=== PATIENT | male | born 1975 | race Caucasian/White ===

== ENCOUNTER 2021-06-19 16:14 | Inpatient (IN) | payer OTHER ==
[~2021-06-19] VITALS: Ht 180.3 cm; Wt 111.1 kg
[2021-06-19 17:43] LABS: HEMOGLOBIN 14.1 gm/dl (14.0-17.5); RED BLOOD COUNT 4.86 M/UL (4.20-5.50); WHITE BLOOD COUNT 5.6 K/UL (4.5-11.0)
[2021-06-19 18:04] LABS: BUN/CREATININE RATIO 20 (0-10)
[2021-06-20 03:55] LABS: HEMOGLOBIN 13.9 gm/dl (14.0-17.5); RED BLOOD COUNT 4.79 M/UL (4.20-5.50); WHITE BLOOD COUNT 4.7 K/UL (4.5-11.0)
[2021-06-20 04:57] LABS: BUN/CREATININE RATIO 22 (0-10)
[2021-06-20] MEDS ORDERED: LORATADINE10 MG PO (10:55)
[2021-06-20] MEDS ORDERED: IBUPROFEN200 MG PO (10:56)
[2021-06-21 08:03] LABS: HEMOGLOBIN 15.1 gm/dl (14.0-17.5); RED BLOOD COUNT 5.23 M/UL (4.20-5.50)
[2021-06-21 08:05] LABS: WHITE BLOOD COUNT 11.9 K/UL (4.5-11.0)
[2021-06-21 08:39] LABS: BUN/CREATININE RATIO 17 (0-10)
[2021-06-21] MEDS ORDERED: NEBULIZER UNIT INH (11:18)
[2021-06-21] MEDS ORDERED: DECADRON6 MG PO (11:18)
[2021-06-21] MEDS ORDERED: IPRAT-ALBUT 0.5-3 ML NEB (11:18)
[2021-06-21] MEDS ORDERED: AUGMENTIN 875-1 EACH PO (11:18)
== END 2021-06-21 13:43 | disposition home or self-care (01) | DRG 177 ==
LOC: ER1 16:14 → CDU 20:30 → MED SURG 4 06-20 14:32
PROVIDERS: Internal Medicine; Student in an Organized Health Care Education/Training Program; ADMIT Internal Medicine
PROC: 3E0333Z Introduction of Anti-inflammatory into Peripheral Vein, Percutaneous Approach (ICD-10-PCS; principal; 2021-06-19)
PROC: XW033E5 Introduction of Remdesivir Anti-infective into Peripheral Vein, Percutaneous Approach, New Technology Group 5 (ICD-10-PCS; 2021-06-19)
PROC: 8E0ZXY6 Isolation (ICD-10-PCS; 2021-06-20)
DX: U07.1 COVID-19 (principal); J12.82 Pneumonia due to coronavirus disease 2019; J96.01 Acute respiratory failure with hypoxia; D69.6 Thrombocytopenia, unspecified
CPT/HCPCS: 36415; 36600; 71045; 80053; 82550; 82553; 82728; 82803; 83615; 83874; 84484; 85025; 85379; 85652; 86140; 93005; 94760; 96374; 99285; J0456; J0696; J1100; J1650; J7030; J7120; Q9967; U0002